=== PATIENT | male | born 1925 | race Caucasian/White ===

== ENCOUNTER 2017-08-17 14:14 | Emergency (ER) | payer MEDICARE ==
[2017-08-17 14:36] VITALS: TEMP 98
--- NOTE | 2017-08-17 15:59 | ED ---
General Adult HPI - General Chief complaint: Recheck/Abnormal Lab/Rx Stated complaint: High Blood Pressure Time Seen by Provider: 08/17/17 15:59 Source: patient Mode of arrival: wheelchair Limitations: no limitations - History of Present Illness Initial comments: Patient presents for elevated blood pressure. Patient states he was at [employer], put his arm in the blood pressure machine and was reading 200/100. Patient states he is on captopril & atenolol for BP, daily in the morning which he took this morning. Patient states he is asymptomatic, only came to the ER because he was concerned his blood pressure was high. Patient denies confusion, vision changes, headache, neck pain, numbness, weakness, chest pain, shortness of breath, palpitations. - Related Data Allergies Allergy/AdvReac Type Severity Reaction Status Date / Time No Known Allergies Allergy Verified 08/17/17 14:36 Review of Systems ROS Statement: Those systems with pertinent positive or pertinent negative responses have been documented in the HPI. ROS Other: All systems not noted in ROS Statement are negative. Constitutional: Denies: fever, chills Eyes: Denies: eye pain, vision change ENT: Denies: hearing loss, congestion Respiratory: Denies: cough, dyspnea Cardiovascular: Denies: chest pain, palpitations Endocrine: Denies: fatigue Gastrointestinal: Denies: abdominal pain, nausea, vomiting Genitourinary: Denies: frequency Musculoskeletal: Denies: back pain, arthralgia, myalgia Skin: Denies: rash, change in color Neurological: Denies: headache, weakness, numbness, paresthesias, confusion, abnormal gait, vertigo Psychiatric: Denies: anxiety Past Medical History Past Medical History: Coronary Artery Disease (CAD), Cancer, Hyperlipidemia, Hypertension, Myocardial Infarction (ME) Additional Past Medical History / Comment(s): prostate cancer History of Any Multi-Drug Resistant Organisms: None Reported Past Surgical History: Heart Catheterization With Stent Past Psychological History: No Psychological Hx Reported Smoking Status: Never smoker Past Alcohol Use History: Occasional Past Drug Use History: None Reported General Exam - General Exam Comments Initial Comments: Sitting up in bed with legs crossed. No acute distress. Conversing normally. Calm, pleasant, smiling. Well appearing. Does not appear in pain. Well- groomed well-dressed. Hematuria in the ER without difficulty. Able to change himself into a gown without assistance. Limitations: no limitations General appearance: alert, in no apparent distress Head exam: Present: atraumatic, normocephalic Eye exam: Present: normal appearance, PERRL, EOMI Pupils: Present: other (Pupils equal and reactive bilaterally, eye movements intact bilaterally.) ENT exam: Present: normal exam, normal oropharynx Neck exam: Present: normal inspection. Absent: tenderness, meningismus Respiratory exam: Present: normal lung sounds bilaterally. Absent: respiratory distress, wheezes, rales Cardiovascular Exam: Present: regular rate, normal rhythm GI/Abdominal exam: Present: soft. Absent: distended, tenderness Extremities exam: Present: normal inspection Back exam: Present: normal inspection Neurological exam: Present: alert, oriented X3, CN II-XII intact, normal gait, other (Finger to nose coronary bilaterally. Pronator drift negative bilaterally. Muscle strength and sensation intact in all extremities. No focal neuro deficits on exam. Conversing normally. GCS 15. Alert and oriented 4.). Absent: abnormal gait, motor sensory deficit, reflexes normal Psychiatric exam: Present: normal affect, normal mood Skin exam: Present: warm, dry, intact, normal color. Absent: rash, erythema Course Vital Signs 08/17/17 14:33 Temperature 98.0 F Pulse Rate 66 Respiratory 20 Rate Blood Pressure 192/93 O2 Sat by Pulse 97 Oximetry Medical Decision Making - Medical Decision Making Patient asymptomatic in the ER. Patient monitored in ER, remained asymptomatic, blood pressure improved to 185/ 91. Discuss controlling asymptomatic hypertension with patient. He agrees to follow-up with his primary care physician tomorrow for blood pressure recheck, increase in vacation doses is still elevated. Discussed return to emergency room if any symptoms arise including headache, vision changes, numbness, weakness, confusion, speech problems, chest pain, shortness of breath, palpitations. Patient understands and agrees. All questions answered. Feels comfortable being discharged home. Disposition Clinical Impression: HTN (hypertension), Encounter for medication refill Disposition: HOME SELF-CARE Condition: Good Instructions: Chronic Hypertension (ED) Additional Instructions: Follow-up with your number care physician tomorrow for blood pressure recheck. Return to ER for new symptoms. Is patient prescribed a controlled substance at d/c from ED?: No Referrals: Cristin Ortiz MD [Primary Care Provider] - 1-2 days
[2017-08-17 16:53] VITALS: BP 183/89; PULSE 69; RESP 18
== END 2017-08-17 17:09 | disposition home or self-care (01) ==
LOC: EC 14:14
DX: I10 Essential (primary) hypertension (principal); Z76.0 Encounter for issue of repeat prescription; I25.10 Atherosclerotic heart disease of native coronary artery without angina pectoris; I25.2 Old myocardial infarction; Z85.46 Personal history of malignant neoplasm of prostate; Z95.5 Presence of coronary angioplasty implant and graft
CPT/HCPCS: 99283